=== PATIENT | female | born 1985 | race Caucasian/White ===

== ENCOUNTER 2016-10-04 21:36 | Emergency (ER) | payer OTHER ==
[~2016-10-04] VITALS: Ht 152.4 cm; Wt 66.0 kg
[~2016-10-04 21:36] MED LIST: LRT5 PO
[2016-10-04 21:38] VITALS: TEMP 36.8; Ht 152.4 cm; Wt 66.0 kg
[2016-10-04] MEDS ORDERED: METH10SO PO (21:50)
--- NOTE | 2016-10-04 22:35 | EMERGENCY ROOM VISIT NOTE ---
History Report prepared by Monserrat: Rao Haile Under the Supervision of: Romario MominO. First contact with patient: 22:17 Chief Complaint: BACK PAIN Stated Complaint: DXED W OSTEOMYLITIS, LOOKING FOR SECOND OPINION History of Present Illness The patient is a 31 year old female who presents to the Emergency Room with complaints of bilateral leg weakness that began 3 weeks ago. At this time, she noticed that she had an increased trouble walking and began to experience intermittent falls. She denies any dizziness. Because of this, she has been having lower back pain as well radiating into her right leg. She notes that her legs get numb as well. Recently, she has been having chills. She denies any fevers, abdominal pain, or urinary/bowel incontinence. She takes Methadone every morning for her pain. She does not take any other medications. She was in [place] 2 days ago for the same symptoms. She received a MRI, x-rays, and a CT scan. They thought that she may have osteomyelitis. They recommended transfer to [facility] and patient refused setting childcare issues and signed out AMA. In the fall of last year, she had an infection in her lower back that she took an 8 week course of antibiotics for. Source of History: patient Onset: 3 weeks ago Position: leg (bilateral) Symptom Intensity: moderate Quality: other (Weakness) Timing: intermittent Associated Symptoms: + chills, + back pain, + numbness (in legs intermittently), No fevers, No abdominal pain, No urinary symptoms Review of Systems See HPI for pertinent positives & negatives. A total of 10 systems reviewed and were otherwise negative. Past Medical & Surgical Surgical Problems: (1) History of neck surgery Family History Diabetes mellitus Social History Smoking Status: Current Every Day Smoker Smokeless Tobacco Use: No Marital Status: single Housing Status: lives with family Current/Historical Medications Scheduled Methadone Hcl (Methadone Hcl), 107 ML PO DAILY Allergies Coded Allergies: Penicillins (Verified Allergy, Intermediate, rash, 10/04/16) Physical Exam Vital Signs Date Time Temp Pulse Resp B/P (MAP) Pulse Ox O2 Delivery O2 Flow Rate FiO2 10/05/16 04:05 84 16 107/67 95 Room Air 10/05/16 02:19 60 20 103/83 93 Room Air 10/05/16 00:42 73 18 103/55 98 Room Air 10/04/16 23:45 84 18 117/68 95 Room Air 10/04/16 21:38 36.8 97 18 100/62 94 Room Air Physical Exam GENERAL: alert but drowsy, well appearing, well nourished, no distress, non- toxic, smells of tobacco EYE EXAM: normal conjunctiva, PERRL and EOM's grossly intact OROPHARYNX: no exudate, no erythema, lips, buccal mucosa, and tongue normal, and mucous membranes are slightly dry. NECK: supple, no nuchal rigidity, no adenopathy, non-tender LUNGS: Decreased breath sounds bilaterally. No wheezes, rhonchi, or rales. HEART: no murmurs, S1 normal and S2 normal, no jvd ABDOMEN: abdomen soft, non-tender, normo-active bowel sounds, no masses, no rebound or guarding. BACK: Back is symmetrical on inspection and there is no deformity, no midline tenderness, no CVA tenderness. SKIN: no rashes and no bruising UPPER EXTREMITIES: Two contusions to the ventral proximal right upper extremity consistent with IV insertion. LOWER EXTREMITIES: No pitting edema. NEURO EXAM: +2 bilateral patellar reflexes. Normal sensation. Normal pulses. When distracted, the patient is moving her right lower extremity. When focusing on that area during exam, she has decreased ROM. Patient appears slightly intoxicated although is able to answer questions, has occasional slurring of her speech and difficulty maintaining eye contact. Medical Decision & Procedures ER Provider Diagnostic Interpretation: Radiology results have been interpreted by the radiologist and reviewed by me. CT C SPINE: Status post C2-T2 posterior fusion. No hardware or osseous fracture. Expected straightening of the normal cervical lordosis Radiologist: Cory Mosquera MD CT HEAD: No acute intracranial process. Old left frontal craniotomy changes. Radiologist: Cory Mosquera M.D. Laboratory Results 10/04/16 22:53 Red Blood Count 4.28, Mean Corpuscular Volume 88.3, Mean Corpuscular Hemoglobin 30.8, Mean Corpuscular Hemoglobin Concent 34.9, Mean Platelet Volume 10.6, Neutrophils (%) (Auto) 62.4, Lymphocytes (%) (Auto) 24.8, Monocytes (%) (Auto) 9.6, Eosinophils (%) (Auto) 2.1, Basophils (%) (Auto) 0.5, Neutrophils # (Auto) 4.95, Lymphocytes # (Auto) 1.97, Monocytes # (Auto) 0.76, Eosinophils # (Auto) 0.17, Basophils # (Auto) 0.04 10/04/16 22:53 10/05/16 00:29 Test 10/04/16 22:53 10/04/16 23:14 10/05/16 00:29 White Blood Count 7.94 K/uL (4.8-10.8) Red Blood Count 4.28 M/uL (4.2-5.4) Hemoglobin 13.2 g/dL (12.0-16.0) Hematocrit 37.8 % (37-47) Mean Corpuscular Volume 88.3 fL (80-100) Mean Corpuscular Hemoglobin 30.8 pg (25-34) Mean Corpuscular Hemoglobin Concent 34.9 g/dl (32-36) Platelet Count 199 K/uL (130-400) Mean Platelet Volume 10.6 fL (7.4-10.4) Neutrophils (%) (Auto) 62.4 % Lymphocytes (%) (Auto) 24.8 % Monocytes (%) (Auto) 9.6 % Eosinophils (%) (Auto) 2.1 % Basophils (%) (Auto) 0.5 % Neutrophils # (Auto) 4.95 K/uL (1.4-6.5) Lymphocytes # (Auto) 1.97 K/uL (1.2-3.4) Monocytes # (Auto) 0.76 K/uL (0.11-0.59) Eosinophils # (Auto) 0.17 K/uL (0-0.5) Basophils # (Auto) 0.04 K/uL (0-0.2) RDW Standard Deviation 43.1 fL (36.4-46.3) RDW Coefficient of Variation 13.3 % (11.5-14.5) Immature Granulocyte % (Auto) 0.6 % Immature Granulocyte # (Auto) 0.05 K/uL (0.00-0.02) Erythrocyte Sedimentation Rate 59 mm/hr (0-21) Anion Gap 7.0 mmol/L (3-11) Est Creatinine Clear Calc Drug Dose 69.7 ml/min Estimated GFR () 87.6 Estimated GFR (Non- 75.5 BUN/Creatinine Ratio 13.1 (10-20) Calcium Level 9.6 mg/dl (8.5-10.1) Total Bilirubin 0.5 mg/dl (0.2-1) Alanine Aminotransferase (ALT/SGPT) 18 U/L (12-78) Alkaline Phosphatase 108 U/L (45-117) C-Reactive Protein 6.40 mg/dl (0-0.29) Total Protein 8.5 gm/dl (6.4-8.2) Albumin 3.6 gm/dl (3.4-5.0) Lipase 85 U/L (73-393) Ethyl Alcohol mg/dL < 3.0 mg/dl (0-3) Urine Color DK YELLOW Urine Appearance CLOUDY (CLEAR) Urine pH 5.0 (4.5-7.5) Urine Specific [place] 1.019 (1.000-1.030) Urine Protein NEG (NEG) Urine Glucose (UA) NEG (NEG) Urine Ketones NEG (NEG) Urine Occult Blood NEG (NEG) Urine Nitrite NEG (NEG) Urine Bilirubin NEG (NEG) Urine Urobilinogen NEG (NEG) Urine Leukocyte Esterase SMALL (NEG) Urine WBC (Auto) 5-10 /hpf (0-5) Urine RBC (Auto) 0-4 /hpf (0-4) Urine Hyaline Casts (Auto) >30 /lpf (0-5) Urine Epithelial Cells (Auto) >30 /lpf (0-5) Urine Bacteria (Auto) 1+ (NEG) Urine Pathogenic Casts /lpf (0) Urine Yeast (Auto) (NONE PRSENT) Urine Opiates Screen POS (NEG) Urine Methadone, Qualitative POS (NEG) Urine Barbiturates NEG (NEG) Urine Phencyclidine (PCP) Level NEG (NEG) Ur Amphetamine/Methamphetamine NEG (NEG) MDMA (Ecstasy) Screen NEG (NEG) Urine Benzodiazepines Screen POS (NEG) Urine Cocaine Metabolite NEG (NEG) Urine Marijuana (THC) POS (NEG) Direct Bilirubin 0.1 mg/dl (0-0.2) Aspartate Amino Transf (AST/SGOT) 18 U/L (15-37) Laboratory results per my review. Medications Administered Medications (Trade) Dose Ordered Sig/Vaughn Route Start Time Stop Time Status Last Admin Dose Admin Ketorolac Tromethamine (Toradol Inj) 30 mg NOW STAT IV 8/10/17 00:37 10/05/16 00:38 DC 10/05/16 00:41 30 MG Lorazepam (Ativan Tab) 1 mg NOW STAT SL 10/05/16 03:58 10/05/16 03:59 DC 10/05/16 04:05 1 MG ED Course 2217: The patient was evaluated in room A2. A complete history and physical exam was performed. 2234: I reviewed the patient's records from her recent [facility] visit. She did receive multiple scans, but she signed out AMA. 0037: Ordered Toradol Inj 30 mg IV 0245: Awaiting MRI read. 0300: Patient signed out to Dr. Cristina awaiting MRI. I have a low suspicion for osteomyelitis in this patient, however given prior history and complaints, the possibility cannot be entirely excluded based on presentation alone. Patient's labs reassuring, leukocytosis seen 3 days ago at [place] is now resolved, and ESR/CRP are lower tonight compared to prior levels also. I feel there is some component of drug-seeking behavior given patient's slight intoxication on bedside interview and exam, THC found in urine drug screen, and inconsistencies between her story and physical exam. Patient was not given any narcotics on the emergency room under my care. Was given a dose of Toradol. Patient denies any IV drug use. Patient with no symptoms and physical exam to suggest acute nerve impingement or cauda equina. Medical Decision Differential diagnosis: Etiologies such as musculoskeletal, disc herniation, fracture, aortic disease, metastatic disease, cord compression, discitis, infection, renal colic, gastrointestinal, acute exacerbation of chronic back pain, sciatica, cauda equina, as well as others were entertained. Medication Reconcilliation Current Medication List: was personally reviewed by me Blood Pressure Screening Patient's blood pressure: Normal blood pressure Blood pressure disposition: Did not require urgent referral Impression Primary Impression: Low back pain Additional Impressions: Leg weakness Marijuana abuse Tobacco abuse Scribe Attestation The scribe's documentation has been prepared under my direction and personally reviewed by me in its entirety. I confirm that the note above accurately reflects all work, treatment, procedures, and medical decision making performed by me. Departure Information Dispostion Home / Self-Care Forms HOME CARE DOCUMENTATION FORM, IMPORTANT VISIT INFORMATION Patient Instructions My [facility] Problem Qualifiers Primary Impression: Low back pain Chronicity: chronic Back pain laterality: bilateral Sciatica presence: with sciatica Sciatica laterality: sciatica of right side Qualified Codes: M54.41 - Lumbago with sciatica, right side; G89.29 - Other chronic pain Additional Impressions: Leg weakness Laterality: bilateral Qualified Codes: R29.898 - Other symptoms and signs involving the musculoskeletal system
[2016-10-04 23:20] LABS: BASO % 0.5 %; BASO ABS # 0.04 K/uL (0-0.2); COMPLETE YES; EOS % 2.1 %; HEMATOCRIT 37.8 % (37-47); IG% 0.6 %; LYMPH % 24.8 %; LYMPH ABS # 1.97 K/uL (1.2-3.4); MEAN CELL VOLUME 88.3 fL (80-100); MEAN CORPUSCULAR HEMOGLOBIN 30.8 pg (25-34); MEAN CORPUSCULAR HGB CONC 34.9 g/dl (32-36); MEAN PLATELET VOLUME 10.6 fL (7.4-10.4); MONO % 9.6 %; NEUT % 62.4 %; PLATELET COUNT 199 K/uL (130-400); RED BLOOD COUNT 4.28 M/uL (4.2-5.4); WHITE BLOOD COUNT 7.94 K/uL (4.8-10.8)
[2016-10-04 23:26] LABS: URINE APPEARANCE CLOUDY (CLEAR); URINE COLOR DK YELLOW; URINE EPITHELIAL CELL AUTO >30 /lpf (0-5); URINE NITRITE NEG (NEG); URINE SPECIFIC GRAVITY 1.019 (1.000-1.030); UROBILINOGEN NEG (NEG); ZZUR CULT IF INDIC CLEAN CATCH YES
[2016-10-04 23:52] LABS: BENZODIAZEPINE, URINE POS (NEG); COCAINE,URINE NEG (NEG); PHENCYCLIDINE, URINE NEG (NEG)
[2016-10-05 00:15] LABS: ALKALINE PHOSPHATASE 108 U/L (45-117); ALT/SGPT 18 U/L (12-78); BLOOD UREA NITROGEN 13 mg/dl (7-18); BUN/CREATININE RATIO 13.1 (10-20); CALCIUM 9.6 mg/dl (8.5-10.1); CARBON DIOXIDE 29 mmol/L (21-32); CHLORIDE 104 mmol/L (98-107); GLUCOSE 70 mg/dl (70-99); SODIUM 140 mmol/L (136-145)
[2016-10-05 00:22] LABS: MANUAL MICROSCOPIC REQUIRED? NO; REVIEW REQ? YES; URINE BILIRUBIN NEG (NEG)
[2016-10-05] MEDS ORDERED: KETOROLAC TROMETHAMINE 30 MG/ML VIAL IV STA (00:37)
[2016-10-05 00:54] LABS: POTASSIUM 3.6 mmol/L (3.5-5.1)
[2016-10-05] MEDS ORDERED: GADAVIST IV PRN (02:30)
[2016-10-05] MEDS ORDERED: LORAZEPAM 1 MG TAB SL STA (03:58)
[2016-10-05 04:05] VITALS: BP 107/67; PULSE 84; O2SAT 95
--- NOTE | 2016-10-05 06:26 | EMERGENCY ROOM VISIT NOTE ---
ED Visit Note First contact with patient: 03:57 I received this patient in signout at the change of shift from Dr. Shanti baumann, pending MRI results. The MRI of the lumbar spine reveals concern over a chronic or reoccurring osteomyelitis at L3/L4. Patient has a normal white blood cell count but an elevated sedimentation and CRP. I did speak with Dr. Duarte at [facility]. He does not believe the patient needs to be transported to [place] today. I did review the MRI findings as well as laboratory work with him. The patient was given her MRI on CD. She was advised to contact their office for follow-up appointment this week. She was discharged to the care of her friends. She will return to the ER for worsening of symptoms or any medical concerns.
--- NOTE | 2016-10-05 06:43 | DIAGNOSTIC IMAGING REPORT ---
HEAD WITHOUT CONTRAST (CT) CLINICAL HISTORY: 31 years-old Female with trauma. Acute head injury status post trauma. TECHNIQUE: Multiple axial CT images of the head were obtained without contrast. A dose lowering technique was utilized adhering to the principles of ALARA. CT DOSE: 1030.68 mGy.cm COMPARISON: CT cervical spine of same day FINDINGS: No acute intracranial hemorrhage, midline shift, mass, large territorial ischemia or abnormal extra-axial collection. The calvarium is intact with postsurgical changes of the left frontal bone. The mastoid air cells, and middle ear cavities are clear. There is minimal ethmoid sinus disease. Soft tissues are within normal limits. Orbits are symmetric. IMPRESSION: 1. No acute intracranial abnormality. 2. Postsurgical changes of the left frontal calvarium. The above report was generated using voice recognition software. It may contain grammatical, syntax or spelling errors. Electronically signed by: Marciano Barron M.D. 10/05/2016 6:42 AM Dictated Date/Time: 10/05/2016 6:40 AM
--- NOTE | 2016-10-05 06:56 | DIAGNOSTIC IMAGING REPORT ---
CT OF THE CERVICAL SPINE WITHOUT CONTRAST CLINICAL HISTORY: Trauma, hx surgery/pain COMPARISON STUDY: No previous studies for comparison. TECHNIQUE: Helical axial images of the cervical spine were obtained without IV contrast. Sagittal and coronal reconstructions were viewed. A dose lowering technique was utilized adhering to the principles of ALARA. FINDINGS: Note is made of a posterior fusion extending from C2 through to T2. Multilevel discectomy is noted. Hardware is intact. There is reversal of the normal cervical lordosis. This is likely chronic. There is no acute cervical spine fracture. Craniocervical junction is intact. There is no prevertebral edema. Minimal right upper lobe groundglass opacity is nonspecific but may reflect atelectasis. IMPRESSION: 1. No acute cervical spine fracture or subluxation. 2. Status post C2-T2 posterior fusion with multilevel discectomy. Reversal of normal cervical lordosis. Electronically signed by: Matias Lomas M.D. 10/05/2016 6:54 AM Dictated Date/Time: 10/05/2016 6:50 AM
--- NOTE | 2016-10-05 07:50 | DIAGNOSTIC IMAGING REPORT ---
LUMBAR SPINE MRI WITH AND WITHOUT CONTRAST HISTORY: back pain, hx osteomyelitis TECHNIQUE: Multiplanar multisequence MRI of the lumbar spine was performed both before and after the intravenous administration of contrast. COMPARISON: Outside hospital report but no images of the lumbar spine MRI 10/03/2016. FINDINGS: For the purpose of the report the L5-S1 disc space will be located on axial image 27 of 30. There is an abnormal appearance to the L3-L4 endplates with T2 hyperintense, T1 hypointense signal and mild enhancement. No epidural fluid collections identified at this time. Small amount of increased T2 signal within the mid aspect of the L3-L4 disc space which also demonstrates mild enhancement. Moderate L3-L4 disc space narrowing. There is also suggestion of enhancement within the right anterolateral paraspinal soft tissues at the L3-L4 disc space level and L4 vertebral body level. There is also a few small retroperitoneal lymph nodes from the L3 and L4 levels. Slight erosion versus Schmorl's nodes at the L3-L4 endplate. The remaining disc spaces are preserved. The conus terminates at the L1-L2 disc space level. No significant central canal or neural foraminal narrowing. No disc herniations are present. IMPRESSION: Abnormal appearance to the L3-L4 disc space, endplate, and paraspinal soft tissues as described above. These findings are likely similar to the prior outside hospital MRI. This could represent healing discitis/osteomyelitis or acute on chronic discitis/osteomyelitis. No epidural fluid collections at this time. Electronically signed by: Dav Lagunas M.D. 10/05/2016 7:49 AM Dictated Date/Time: 10/05/2016 7:36 AM
[2016-10-11 15:58] LABS: COD UR NEGATIVE NG/ML (CUTOFF=50); HYDROCOD UR NEGATIVE NG/ML (CUTOFF=50); HYDROMOR UR 117 NG/ML (CUTOFF=50); HYDROXYETHYLFLURAZEPAM CONF NEGATIVE NG/ML (CUTOFF=50); HYDROXYMIDAZOLAM NEGATIVE NG/ML (CUTOFF=50); HYDROXYTRIAZOLAM CONF NEGATIVE NG/ML (CUTOFF=50); METHADONE METABOLITE >40000 NG/ML (CUTOFF=100); METHADONE VERIFIC >40000 NG/ML (CUTOFF=100); MORPHINE UR NEGATIVE NG/ML (CUTOFF=50); NORHYDROCODONE CONF UR NEGATIVE NG/ML (CUTOFF=50); OXYMORPH UR NEGATIVE NG/ML (CUTOFF=50); TEMAZEPAM CONF 136 NG/ML (CUTOFF=50)
== END 2016-10-05 04:30 | disposition home or self-care (01) ==
LOC: C.EDB 21:40 → MERGE 21:40 → C.EDA 10-05 04:30
DX: M54.41 Lumbago with sciatica, right side (principal); M62.81 Muscle weakness (generalized); G89.29 Other chronic pain; R29.898 Other symptoms and signs involving the musculoskeletal system; Z83.3 Family history of diabetes mellitus; F17.210 Nicotine dependence, cigarettes, uncomplicated; Z79.899 Other long term (current) drug therapy